=== PATIENT | female | born 1945 | race Caucasian/White ===

== ENCOUNTER 2017-04-14 06:10 | Day surgery (SDC) | payer MEDICARE, BC ==
--- NOTE | 2017-04-11 16:09 | PCM.PREANE ---
Preanesthetic Assessment - Anesthesia/Transfusion/Family Hx Anesthesia History: Prior Anesthesia Without Reaction Type of Anesthesia Reaction: Excessive Nausea/Vomiting Family History of Anesthesia Reaction: No Transfusion History: No Prior Transfusion(s) Intubation History: Unknown - Review of Systems Pulmonary: No Symptoms (quit smoking 1971), Cough Cardiovascular: No Symptoms Gastrointestinal: No Symptoms, Constipation Neurological: No Symptoms (History of lower back pain /history of vertigo in the past.) Other: Reports: Sinus Problem - Physical Assessment NPO Status Date: 04/13/17 NPO Status Time: 18:00 Pulse: 72 O2 Sat by Pulse Oximetry: 96 Respiratory Rate: 16 Blood Pressure: 119/75 Temperature: 36.1 C Height: 1.57 m Weight: 64.864 kg ASA Class: 2 Mental Status: Alert & Oriented x3 Airway Class: Mallampati = 2 Dentition: Reports: Normal Dentition, Partial, Caries Thyro-Mental Finger Breadths: 3 Mouth Opening Finger Breadths: 3 ROM/Head Extension: Full Lungs: Clear to Auscultation, Normal Respiratory Effort Cardiovascular: Regular Rate, Regular Rhythm, No Murmurs - Lab Values: Laboratory Last Values MRSA (PCR) Negative 03/28/17 10:10 All lab values reviewed and noted and within acceptable ranges to proceed with scheduled procedure. HGB=13.6 HCT=41.8 Pfgdgpgeb=284,000 - Imaging/EKG Impressions: CXR: unremarkable/negative EKG: SR rte 74, low voltage, precordial leads - Allergies Allergies/Adverse Reactions: Allergies Allergy/AdvReac Type Severity Reaction Status Date / Time acetaminophen [From Vicodin] AdvReac Nausea and Verified 04/11/17 10:25 Vomiting celecoxib [From Celebrex] AdvReac Chest Pain Verified 04/11/17 10:25 hydrocodone bitartrate AdvReac Nausea and Verified 04/11/17 10:25 [From Vicodin] Vomiting ibandronate sodium AdvReac Chest Pain Verified 04/11/17 10:25 [From Boniva] - Anesthesia Plan Pre-Op Medication Ordered: None - Acknowledgements Anesthesia Type Planned: Spinal (And right femoral nerve block within the adductor canal for post operative pain control requested by Dr. Malloy.) Pt an Appropriate Candidate for the Planned Anesthesia: Yes Alternatives and Risks of Anesthesia Discussed w Pt/Guardian: Yes Pt/Guardian Understands and Agrees with Anesthesia Plan: Yes PreAnesthesia Questionnaire HEENT History: Reports: Impaired Vision, Sinusitis, Other (See Below) Other HEENT History: dysphagia, wears glasses Cardiovascular History: Reports: High Cholesterol, Other (See Below) Other Cardiovascular History: varicose veins Respiratory History: Reports: Other (See Below) Other Respiratory History: cough Gastrointestinal History: Reports: Hemorrhoids, Hiatal Hernia, Other (See Below) Other Gastrointestinal History: achalasia, ulcer, esophageal manometry Genitourinary History: Reports: None, UTI, Recurrent SKI BASE TRIMMER History: Reports: None Musculoskeletal History: Reports: Back Pain, Chronic, Osteoarthritis, Osteoporosis, Other (See Below) Other Musculoskeletal History: left ankle fracture, left hip pain Neurological History: Reports: Vertigo Psychiatric History: Reports: None Endocrine/Metabolic History: Reports: None Hematologic History: Reports: None Immunologic History: Reports: None Oncologic (Cancer) History: Reports: None Dermatologic History: Reports: None - Past Surgical History Head Surgeries/Procedures: Reports: None HEENT Surgical History: Reports: Tonsillectomy Cardiovascular Surgical History: Reports: None Respiratory Surgical History: Reports: None GI Surgical History: Reports: Appendectomy, Colonoscopy, EGD, Beau Fundoplication Female Surgical History: Reports: Tubal Ligation Male Surgical History: Reports: None Endocrine Surgical History: Reports: None Neurological Surgical History: Reports: None Musculoskeletal Surgical History: Reports: Carpal Tunnel, Hip Replacement Other Musculoskeletal Surgeries/Procedures:: Left Total hip replacement, thumb surgery, toe surgery Oncologic Surgical History: Reports: None Dermatological Surgical History: Reports: None - SUBSTANCE USE Smoking Status *Q: Former Smoker Recreational Drug Use History: No - HOME MEDS Home Medications: Home Meds Ca Carbonate/Vitamin D3/Vit K [Calcium + D Soft Chewable Tab] 1 tab PO DAILY [History] Om3-DHA/Epa/D3/Lutein/Zeazanth [Eye [employer] Advantage Softgel] 1 cap PO DAILY [History] [employer]-3/DHA/Epa/Fish Oil [Fish Oil 1,000 mg Softgel] 1 cap PO DAILY 04/30/16 [ History] Biotin 5 mg PO DAILY 04/11/17 [History] D-Methorphan/Acetamin/Doxylamn [Night Time Cold-Flu Softgel] 1 cap PO Q4H PRN [History] - CURRENT (IN HOUSE) MEDS Current Meds: Current Medications Lactated Ringer's (Ringers, Lactated) 1,000 mls @ 125 mls/hr IV ASDIRECTED BAILEY Stop: 04/14/17 23:00 Lidocaine/Sodium Bicarbonate (Buffered Lidocaine 1% In Ns 8.4%) 0.25 ml IDERM ONETIME PRN PRN Reason: Prior to IV Start Stop: 04/14/17 18:00 Sodium Chloride (Saline Flush) 10 ml FLUSH ASDIRECTED PRN PRN Reason: Keep Vein Open Stop: 04/14/17 18:00
[~2017-04-14 06:10] MED LIST: EPINEPHrine 1 MG/ML SDV ONE; Lactated Ringers 1,000 ML IV SCH; Lidocaine 1%/Sod Bicarbonate in NS 8.4% 1 ML Syringe IDERM PRN; Morphine PF 1 MG/ML Amp ONE; Ropivacaine 0.5% 5 MG/ML 30 ML SDV ONE; Sodium Chloride 0.9% 10 ML Syringe FLUSH PRN
[2017-04-14] MEDS ORDERED: Vancomycin 1 GM SDV ONE (06:18)
[2017-04-14] MEDS ORDERED: ceFAZolin 1 GM Vial ONE (06:19)
[2017-04-14] MEDS ORDERED: Phenylephrine/Normal Saline 100 MCG/ML 10 ML Syringe ONE (06:20)
[2017-04-14] MEDS ORDERED: fentaNYL 100 MCG/2 ML SDV ONE (06:20)
[2017-04-14] MEDS ORDERED: Propofol 200 MG/20 ML SDV ONE (06:20)
[2017-04-14] MEDS ORDERED: Ondansetron 4 MG/2 ML SDV ONE (06:20)
[2017-04-14] MEDS ORDERED: Lactated Ringers 1,000 ML ONE (06:20)
[2017-04-14] MEDS ORDERED: Midazolam 1 MG/ML 2 ML SDV ONE (06:20)
[2017-04-14] MEDS ORDERED: Scopolamine 1 MG Transdermal Patch TRDERM ONE (06:37)
[2017-04-14] MEDS ORDERED: Ketorolac 15 MG/ML SDV IVPUSH PRN (06:45)
[2017-04-14] MEDS ORDERED: Bisacodyl 5 MG Tab PO PRN (06:46)
[2017-04-14] MEDS ORDERED: Morphine 2 MG/ML Syringe IVPUSH PRN (06:46)
[2017-04-14] MEDS ORDERED: Sennosides 8.6 MG Tab PO PRN (06:46)
[2017-04-14] MEDS ORDERED: Cyclobenzaprine 10 MG Tab PO PRN ×2 (06:46→10:42)
[2017-04-14] MEDS ORDERED: Magnesium Hydroxide 400 MG/5 ML Susp 30 ML Cup PO PRN (06:46)
[2017-04-14] MEDS ORDERED: Naloxone 0.4 MG/ML SDV IVPUSH PRN (06:46)
[2017-04-14] MEDS ORDERED: diphenhydrAMINE 50 MG/ML SDV IVPUSH PRN (07:30)
[2017-04-14] MEDS ORDERED: HYDROmorphone 0.5 MG/0.5 ML Syringe IVPUSH PRN (07:30)
[2017-04-14] MEDS ORDERED: Ondansetron 4 MG/2 ML SDV IVPUSH PRN (07:30)
[2017-04-14] MEDS ORDERED: fentaNYL 100 MCG/2 ML SDV IVPUSH PRN (07:30)
[2017-04-14] MEDS ORDERED: Phenylephrine 1 MG in Sodium Chloride 0.9% 10 ML IV SCH (07:30)
[2017-04-14] MEDS ORDERED: ePHEDrine 50 MG/ML SDV IVPUSH PRN (07:30)
[2017-04-14] MEDS: Iodine/Sodium Iodide 2% Tincture 30 ML Bottle ONE ×2 (08:06→08:16)
[2017-04-14] MEDS: Bupivacaine 0.25% 30 ML SDV ONE ×2 (08:07→08:19)
[2017-04-14] MEDS: ceFAZolin 1 GM Vial ONE ×2 (08:07→08:18)
[2017-04-14] MEDS: Vancomycin 1 GM SDV ONE ×2 (08:08→08:21)
[2017-04-14] MEDS: Morphine 8 MG, EPINEPHrine 0.3 MG, Cefuroxime 750 MG, Ketorolac 30 MG, Sodium Chloride ... ONE ×10 (08:08→08:20)
--- NOTE | 2017-04-14 09:07 | PCM.POSTAN ---
POST ANESTHESIA ASSESSMENT - MENTAL STATUS Mental Status: Alert - VITAL SIGNS Pulse Rate: 74 SaO2: 97 Resp Rate: 19 Blood Pressure: 91/53 Temperature: 36.7 C - RESPIRATORY Respiratory Status: Respiratory Rate WNL, Airway Patent, O2 Saturation Stable, Supplemental Oxygen - CARDIOVASCULAR CV Status: Pulse Rate WNL, Blood Pressure Stable - GASTROINTESTINAL GI Status: No Symptoms - POST OP HYDRATION Hydration Status: Adequate & Stable
--- NOTE | 2017-04-14 09:53 | PCM.SN ---
- Free Text/Narrative Note: Right selective femoral nerve block at the adductor canal for post-procedure pain control under US guidance requested by Dr. Malloy. Time Out: 921 Start: 922 End: 933 Chart reviewed. Consent signed. Questions answered. Appropriate monitors applied. Time out performed. Right mid-shaft femur identified with ultrasound, scanning medially of femur, the femoral artery in the adductor canal visualized , and the femoral nerve located laterally to the artery. The skin was prepped lateral to the ultrasound probe with chlorahexadine. The 21ga 4 insulated block needle was inserted under direct ultrasound guidance into the adductor canal. 25mL of 0.5% ropivacaine with 1:200,000 epinephrine was injected cirmcumferentially around the nerve with intermittent negative aspiration noted. Patient tolerated the procedure well. See pictures on progress note and vital signs on nurses notes. Block completed in PACU. Kaley Guzman CRNA
[2017-04-14] MEDS: Ondansetron 4 MG/2 ML SDV IVPUSH PRN (10:58)
--- NOTE | 2017-04-14 11:41 | CR ---
Right knee: AP and lateral views of the right knee were obtained. Comparison: No prior knee exam. Knee prosthesis is seen. Components are aligned. Underlying bony structures are intact. Soft tissue air is noted from the surgical procedure. Impression: 1. Satisfactory postoperative radiographic appearance of recently placed right knee prosthesis. Diagnostic code #2
--- NOTE | 2017-04-14 12:45 | PCM.OPNOTE ---
- General Post-Op/Procedure Note Date of Surgery/Procedure: 04/14/17 Operative Procedure(s): right total knee arthroplasty Pre Op Diagnosis: right knee osteoarthrosis Post-Op Diagnosis: Same Anesthesia Technique: Local, MAC, Spinal Primary Surgeon: Jayy Malloy Anesthesia Provider: Kaley Guzman Conduit Installer: Fide Coffey Conduit Installer: Radha Cedillo EBL in mLs: 15 Complications: None Condition: Good Free Text/Narrative:: Intake & Output 04/13/17 04/14/17 04/14/17 22:59 06:59 14:59 Intake Total 100 Output Total 125 Balance -25
--- NOTE | 2017-04-14 15:08 | PCM.CONS ---
H&P History of Present Illness - General Date of Service: 04/14/17 Admit Problem/Dx: Admission Diagnosis/Problem Admission Diagnosis/Problem Osteoarthritis of knee Source of Information: Patient, Old Records, Provider, RN, Other (Surgical notes ) History Limitations: Reports: No Limitations - History of Present Illness Initial Comments - Free Text/Narative: Shereen Taylor is a 72 yo female patient of Dr. Malloy who is post-operative day 0 of right total knee arthroplasty. Hospital medicine was consulted for post- operative medical care. At this time she is resting comfortably in bed. Pain is controlled. She denies any chest pain, shortness of breath, palpitations, nausea, or vomiting. She carries a history of: Osteoporosis, dysphagia, achalasia, hx/o Beau fundoplication, HLD, recurrent UTI, chronic back pain, osteoarthritis. She is a former smoker. She is a full code. Her primary care provider is Dr. Perla at [facility] in [place]. Right Knee Pain Score (Numeric/FACES): 2 - Related Data Allergies/Adverse Reactions: Allergies Allergy/AdvReac Type Severity Reaction Status Date / Time acetaminophen [From Vicodin] AdvReac Nausea and Verified 04/14/17 07:13 Vomiting celecoxib [From Celebrex] AdvReac Chest Pain Verified 04/14/17 07:13 hydrocodone bitartrate AdvReac Nausea and Verified 04/14/17 07:13 [From Vicodin] Vomiting ibandronate sodium AdvReac Chest Pain Verified 04/14/17 07:13 [From Boniva] Home Medications: Home Meds Ca Carbonate/Vitamin D3/Vit K [Calcium + D Soft Chewable Tab] 1 tab PO DAILY [History] Om3-DHA/Epa/D3/Lutein/Zeazanth [Eye [place] Advantage Softgel] 1 cap PO DAILY [History] [place]-3/DHA/Epa/Fish Oil [Fish Oil 1,000 mg Softgel] 1 cap PO DAILY 04/30/16 [ History] Biotin 5 mg PO DAILY 04/11/17 [History] D-Methorphan/Acetamin/Doxylamn [Night Time Cold-Flu Softgel] 1 cap PO Q4H PRN [History] Past Medical History HEENT History: Reports: Impaired Vision, Sinusitis, Other (See Below) Other HEENT History: dysphagia, wears glasses Cardiovascular History: Reports: High Cholesterol, Other (See Below) Other Cardiovascular History: varicose veins Respiratory History: Reports: Other (See Below) Other Respiratory History: cough Gastrointestinal History: Reports: Hemorrhoids, Hiatal Hernia, Other (See Below) Other Gastrointestinal History: achalasia, ulcer, esophageal manometry Genitourinary History: Reports: None, UTI, Recurrent PERMANENT WAVER History: Reports: None Musculoskeletal History: Reports: Back Pain, Chronic, Osteoarthritis, Osteoporosis, Other (See Below) Other Musculoskeletal History: left ankle fracture, left hip pain Neurological History: Reports: Vertigo Psychiatric History: Reports: None Endocrine/Metabolic History: Reports: None Hematologic History: Reports: None Immunologic History: Reports: None Oncologic (Cancer) History: Reports: None Dermatologic History: Reports: None - Past Surgical History Head Surgeries/Procedures: Reports: None HEENT Surgical History: Reports: Tonsillectomy Cardiovascular Surgical History: Reports: None Respiratory Surgical History: Reports: None GI Surgical History: Reports: Appendectomy, Colonoscopy, EGD, Beau Fundoplication Female Surgical History: Reports: Tubal Ligation Male Surgical History: Reports: None Endocrine Surgical History: Reports: None Neurological Surgical History: Reports: None Musculoskeletal Surgical History: Reports: Carpal Tunnel, Hip Replacement Other Musculoskeletal Surgeries/Procedures:: Left Total hip replacement, thumb surgery, toe surgery Oncologic Surgical History: Reports: None Dermatological Surgical History: Reports: None Social & Family History - Tobacco Use Smoking Status *Q: Former Smoker Month Tobacco Last Used: 1971 - Caffeine Use Caffeine Use: Reports: Coffee - Recreational Drug Use Recreational Drug Use: No H&P Review of Systems - Review of Systems: Review Of Systems: See Below General: Reports: No Symptoms HEENT: Reports: No Symptoms Pulmonary: Reports: No Symptoms Cardiovascular: Reports: No Symptoms Gastrointestinal: Reports: Constipation (chronic ), Nausea, Vomiting. Denies: Abdominal Pain, Diarrhea, Difficulty Swallowing Genitourinary: Reports: No Symptoms Musculoskeletal: Reports: Joint Pain (right knee ) Skin: Reports: No Symptoms Psychiatric: Reports: No Symptoms Neurological: Reports: No Symptoms Hematologic/Lymphatic: Reports: No Symptoms Immunologic: Reports: No Symptoms Exam - Exam Exam: See Below - Vital Signs Vital Signs: Last Vital Signs Temp 97.3 F 04/14/17 09:45 Pulse 70 04/14/17 10:31 Resp 16 04/14/17 10:05 BP 112/57 L 04/14/17 10:31 Pulse Ox 93 L 04/14/17 10:31 Weight: 143 lb - Exam Quality Assessment: Supplemental Oxygen (1L), Urinary Catheter, DVT Prophylaxis General: Alert, Oriented, Cooperative. No: Mild Distress HEENT: PERRLA, Hearing Intact, Mucosa Moist & [place], Nares Patent, Normal Nasal Septum, Posterior Pharynx Clear, Conjunctiva Clear, EOMI, EACs Clear, TMs Clear Neck: Supple, Trachea Midline. No: JVD Lungs: Clear to Auscultation, Normal Respiratory Effort Cardiovascular: Regular Rate, Regular Rhythm GI/Abdominal Exam: Normal Bowel Sounds, Soft, Non-Tender, No Organomegaly, No Distention, No Abnormal Bruit, No Mass, Pelvis Stable (Female) Exam: Deferred Rectal (Female) Exam: Deferred Back Exam: Normal Inspection, Full Range of Motion Extremities: No Pedal Edema, Normal Capillary Refill, Leg Pain (right knee ), Limited Range of Motion, Other (TARA bandage in place on right leg. Bandage is dry and intact. Cooling pack in place. ) Peripheral Pulses: 2+: Radial (L), Radial (R), Posterior Tibial (L), Posterior Tibial (R), Dorsalis Pedis (L), Dorsalis Pedis (R) Skin: Warm, Dry, Intact Neurological: Cranial Nerves Intact (Grossly) Neuro Extensive - Mental Status: Alert, Oriented x3, Normal Mood/Affect, Normal Cognition, Memory Intact Psychiatric: Alert, Normal Affect, Normal Mood Consult PN Assessment/Plan POD#: 0 Procedures: Procedures ASSAY OF TROPONIN QUANT (06/28/15) COLONOSCOPY AND BIOPSY (05/01/16) COMPLETE CBC W/AUTO DIFF WBC (10/23/14) COMPREHEN METABOLIC PANEL (10/23/14) CONTRST X-RAY UPPR GI TRACT (08/13/13) CT HEAD/BRAIN W/O DYE (10/23/14) CT MAXILLOFACIAL W/O DYE (04/24/15) DXA BONE DENSITY AXIAL (03/31/17) ELECTROCARDIOGRAM TRACING (10/23/14) EMERGENCY DEPT VISIT (10/23/14) OFFICE/OUTPATIENT VISIT NEW (04/24/15) PROTHROMBIN TIME (10/23/14) ROUTINE VENIPUNCTURE (10/23/14) THER/PROPH/DIAG INJ IV PUSH (10/23/14) THROMBOPLASTIN TIME PARTIAL (10/23/14) TISSUE EXAM BY PATHOLOGIST (05/01/16) TX/PRO/DX INJ NEW DRUG ADDON (10/23/14) TX/PRO/DX INJ SAME DRUG WIRE SAW OPERATOR (10/23/14) URINE BACTERIA CULTURE (08/04/13) X-RAY EXAM OF ABDOMEN (10/23/14) (1) S/P total knee arthroplasty SNOMED Code(s): 6804059873541, 8828519878947 Code(s): Z96.659 - PRESENCE OF UNSPECIFIED ARTIFICIAL KNEE JOINT Priority: High Current Visit: Yes Qualifiers: Laterality: right Qualified Code(s): Z96.651 - Presence of right artificial knee joint (2) Osteoarthritis SNOMED Code(s): 454336575 Code(s): M19.90 - UNSPECIFIED OSTEOARTHRITIS, UNSPECIFIED SITE Priority: High Current Visit: Yes Qualifiers: Osteoarthritis location: knee Osteoarthritis type: primary Laterality: right Qualified Code(s): M17.11 - Unilateral primary osteoarthritis, right knee (3) Age related osteoporosis SNOMED Code(s): 232570922 Code(s): M81.0 - AGE-RELATED OSTEOPOROSIS W/O CURRENT PATHOLOGICAL FRACTURE Priority: Medium Current Visit: Yes Qualifiers: Presence of current pathological fracture: unspecified Qualified Code(s): M81.0 - Age-related osteoporosis without current pathological fracture (4) HLD (hyperlipidemia) SNOMED Code(s): 09475654 Code(s): E78.5 - HYPERLIPIDEMIA, UNSPECIFIED Current Visit: Yes (5) Achalasia SNOMED Code(s): 34215118 Code(s): K22.0 - ACHALASIA OF CARDIA Priority: Low Current Visit: No (6) Chronic back pain SNOMED Code(s): 346708271 Code(s): M54.9 - DORSALGIA, UNSPECIFIED; G89.29 - OTHER CHRONIC PAIN Priority: Low Current Visit: No Qualifiers: Back pain location: back pain in unspecified location Back pain laterality : unspecified Qualified Code(s): M54.9 - Dorsalgia, unspecified; G89.29 - Other chronic pain; G89.29 - Other chronic pain (7) History of Beau fundoplication SNOMED Code(s): 399704270 Code(s): Z98.890 - OTHER SPECIFIED POSTPROCEDURAL STATES Priority: Low Current Visit: No Problem List Initiated/Reviewed/Updated: Yes Plan: I/P: Acute: S/P right total knee arthroplasty - post-operative day 0 -DVT prophylaxis and pain management per primary care team -PT/OT -IS/RT -Monitor oxygen saturation -Titrate oxygen as needed -Vital signs stable -Monitor labs -Pre-operative Hgb was 13.6 Osteoarthritis of right knee -Pain management per primary care team Post-operative nausea and vomiting -Zofran and scopolamine patch had little effect -Compazine ordered Chronic: Osteoporosis Dysphasia Achalasia Hx/o this on fundoplication HLD Chronic back pain Plan: CM for discharge planning GI prophylaxis Home medications as indicated Other orders as listed above Routine AM labs She is a full code. Her PCP is Dr. Perla at [facility] Thank you for allowing us to participate in the care of this patient!! Total time spent with patient 30 minutes Requesting Provider: Dr. Malloy Date Consult Requested: 04/14/17 Reason for Consult: Post-operative medical management Patient History Reviewed: Yes Admission H&P Reviewed: Yes Time Spent (in minutes): 30
[2017-04-14] MEDS ORDERED: Prochlorperazine 10 MG/2 ML SDV IVPUSH ONE (15:41)
[2017-04-14] MEDS: ceFAZolin 2 GM in Premix Bag 1 BAG IV SCH ×2 (15:54→23:13)
[2017-04-14] MEDS: Famotidine 20 MG Tab PO SCH ×2 (18:15→18:46)
[2017-04-14] MEDS: Acetaminophen/oxyCODONE 325-5 MG Tab PO PRN ×2 (18:46→23:26)
--- NOTE | 2017-04-14 20:26 | OR ---
DATE OF OPERATION: 04/14/2017 SURGEON: Jayy Malloy MD OPERATION PERFORMED: Right total knee arthroplasty. PREOPERATIVE DIAGNOSIS: Right knee osteoarthrosis. POSTOPERATIVE DIAGNOSIS: Right knee osteoarthrosis. ANESTHESIA: Local MAC with spinal. ANESTHESIA PROVIDER: Kaley Guzman CRNA. CUPOLA MELTING SUPERVISOR: Fide Coffey PA-C; and Radha Cedillo LPN. ESTIMATED BLOOD LOSS: 15 mL. COMPLICATIONS: None. CONDITION: Stable. IMPLANTS: 1. Sanjiv size 4 PS femur. 2. Sanjiv size 4 [place] tibial baseplate. 3. [place] size 4, 9 mm PS X3 polyethylene. 4. 29 x 9 mm cemented patella. DESCRIPTION OF PROCEDURE: The patient was identified in the preop holding area. Proper site was marked and identified by the surgeon. The patient was taken back to the operating theater. After adequate anesthesia, the patient's right lower extremity had a nonsterile tourniquet applied and it was then sterilely prepped and draped in the usual sterile fashion. OR timeout was performed. The patient received 2 g IV Ancef. At this time, right lower extremity was exsanguinated. Tourniquet was insufflated to 300 mmHg. Standard medial parapatellar incision was made. Medial parapatellar arthrotomy was created. Deep fibers of the MCL were raised and anterior fat pad was resected. At this time, attention was turned to the patella. Patella measured 22, it was resected to a 13 for a 29 x 9 mm patella. Drill holes were then drilled and found to be in adequate position. The drill was then drilled in the distal femur and the intramedullary distal femoral cutting guide was then placed. 8 mm was resected off the distal femur and was found to be an adequate resection. Sizing guide was placed. It was found to be a size 4 femur that was shown on the implant record at the beginning of this dictation. The drill holes were drilled for the epicondylar axis using [place] line and epicondyles as reference. At this time, the 4-in-1 cutting block was placed. An anterior posterior and anterior and posterior chamfer cuts were then completed. The correct size box cut was then placed and the box cut was completed and found to be an adequate resection. Attention was turned to the tibia. The posterior medial lateral retractors were placed. The extramedullary tibial guide was placed. It was placed in the old footprint of the ACL. It was aligned with the center of the ankle and 0 degrees of slope, 9 mm was then resected off the unaffected lateral side. There was found to be an acceptable reduction. At this time, posterior osteophytes were removed along with medial and lateral meniscus. A trial implant was placed with a correct sized tibia that was mentioned at the beginning of the dictation. A [place] size 4, 9 mm PS X3 polyethylene was then placed. The patient's knee was brought through range of motion. The patella was tracking centrally and was stable to varus and valgus stress. Alignment was found to be roughly at 0 degrees. At this time, cement was mixed on the back table. The tibia was stamped and drilled in proper rotation. All cut surfaces were irrigated with pulse lavage irrigation with Ancef and then completely dried. Once this was completed, then the cement was ready. The universal tibial base plate was cemented in place. Next, the [address] and the [place] size 4, 9 mm PS X3 polyethylene was placed. The patient's knee was brought into full extension. Excess cement was removed. The patella was then cemented in place at this time. Tourniquet was deflated. One liter dilute Betadine solution was irrigated through the knee along with 3 L of pulse lavage irrigation with Ancef. Periarticular injection was then completed. The patient's knee was brought through a range of motion. Once the cement had time to set up and it was found to be stable to varus valgus stress, the patella was tracking centrally with full range of motion. At this time, a #2 barbed suture was used for closure of the medial parapatellar arthrotomy. Topical tranexamic acid was placed. 2-0 Vicryl was used subcutaneously, a running 3-0 Monocryl was used subcuticularly. The patient tolerated the procedure well and was sent to the PACU in stable condition. TRUONG /[id number]
[2017-04-14] MEDS: Docusate Sodium 100 MG Cap PO SCH (20:28)
[2017-04-15] MEDS: Ondansetron 4 MG/2 ML SDV IVPUSH PRN ×2 (05:58→13:32)
[2017-04-15] MEDS: ceFAZolin 2 GM in Premix Bag 1 BAG IV SCH (06:02)
[2017-04-15] MEDS: Famotidine 20 MG Tab PO SCH (06:10)
[2017-04-15] MEDS: Acetaminophen/oxyCODONE 325-5 MG Tab PO PRN ×3 (06:11→13:31)
--- NOTE | 2017-04-15 08:21 | PCM.CONSN ---
- General Info Date of Service: 04/15/17 Admission Dx/Problem (Free Text): Admission Diagnosis/Problem Admission Diagnosis/Problem Osteoarthritis of knee Postop day #1 total knee arthroplasty with Dr. Malloy She is doing well this morning she's been up ambulatory with physical therapy did get dressed. She feels mildly nauseous but is hungry. She is voiding. Functional Status: Reports: Pain Controlled, Tolerating Diet, Ambulating, Urinating, Incentive Spirometry. Denies: New Symptoms - Review of Systems General: Reports: No Symptoms HEENT: Reports: No Symptoms Pulmonary: Reports: No Symptoms Cardiovascular: Reports: No Symptoms Gastrointestinal: Reports: No Symptoms Genitourinary: Reports: No Symptoms Musculoskeletal: Reports: Leg Pain Skin: Reports: No Symptoms Neurological: Reports: No Symptoms Psychiatric: Reports: No Symptoms - Patient Data Vitals - Most Recent: Last Vital Signs Temp 98.4 F 04/15/17 02:41 Pulse 70 04/15/17 02:41 Resp 16 04/15/17 02:41 BP 107/53 L 04/15/17 02:41 Pulse Ox 93 L 04/15/17 02:41 Weight - Most Recent: 143 lb I&O - Last 24 Hours: Intake & Output 04/14/17 04/15/17 04/15/17 22:59 06:59 14:59 Intake Total 420 450 Output Total 700 Balance -280 450 Lab Results Last 24 Hours: Laboratory Results - last 24 hr 04/15/17 04/15/17 Range/Units 06:40 06:40 WBC 6.58 (3.98-10.04) K/mm3 RBC 3.87 L (3.98-5.22) M/mm3 Hgb 11.3 (11.2-15.7) gm/L Hct 35.8 (34.1-44.9) % MCV 92.5 (79.4-94.8) fl MCH 29.2 (25.6-32.2) pg MCHC 31.6 L (32.2-35.5) g/dl RDW Std Deviation 43.8 (36.4-46.3) fL Plt Count 221 (182-369) K/mm3 MPV 9.5 (9.4-12.3) fl Carbon Dioxide 28 (21-32) mEq/L BUN 14 (7-18) mg/dL Creatinine 0.9 (0.55-1.02) mg/dL Est Cr Clr Drug Dosing 44.03 mL/min Estimated GFR (MDRD) > 60 (>60) mL/min BUN/Creatinine Ratio 15.6 (14-18) Glucose 131 H (83-115) mg/dL Calcium 8.8 (8.5-10.1) mg/dL Total Bilirubin 0.5 (0.2-1.0) mg/dL AST 23 (15-37) U/L ALT 21 (14-59) U/L Alkaline Phosphatase 43 L (46-116) U/L Total Protein 6.0 L (6.4-8.2) g/dl Albumin 3.0 L (3.4-5.0) g/dl Globulin 3.0 gm/dL Albumin/Globulin Ratio 1.0 (1-2) Med Orders - Current: Current Medications Bisacodyl (Dulcolax) 5 mg PO DAILY PRN PRN Reason: Constipation Docusate Sodium (Colace) 100 mg PO BID [facility] Last Admin: 04/14/17 20:28 Dose: 100 mg Famotidine (Pepcid) 20 mg PO Q12H [facility] Last Admin: 04/15/17 06:10 Dose: 20 mg Magnesium Hydroxide (Milk Of Magnesia) 30 ml PO BID PRN PRN Reason: Constipation Miscellaneous Information (Remove Patch) 1 ea TRDERM Q72H [facility] Stop: 04/17/17 06:31 Morphine Sulfate (Morphine) 2 mg IVPUSH Q2H PRN PRN Reason: Breakthrough Pain Naloxone HCl (Narcan) 0.1 mg IVPUSH Q5M PRN PRN Reason: Oversedation Ondansetron HCl (Zofran) 4 mg IVPUSH Q6H PRN PRN Reason: Nausea/Vomiting Last Admin: 04/15/17 05:58 Dose: 4 mg Oxycodone/Acetaminophen (Percocet 325-5 Mg) 1 - 2 tab PO Q4H PRN PRN Reason: Pain Last Admin: 04/15/17 06:11 Dose: 2 tab Rivaroxaban (Xarelto) 10 mg PO DAILY [facility] Senna (Senna) 8.6 mg PO BID PRN PRN Reason: Constipation Discontinued Medications Bupivacaine HCl (Marcaine 0.25%) Confirm Administered Dose 30 ml .ROUTE .STK- MED ONE Stop: 04/14/17 06:20 Last Admin: 04/14/17 08:19 Dose: 30 ml Cefazolin Sodium (Ancef) Confirm Administered Dose 2 gm .ROUTE .STK-MED ONE Stop: 04/14/17 06:21 Last Admin: 04/14/17 08:18 Dose: 2 gm Cefazolin Sodium (Ancef) Confirm Administered Dose 2 gm .ROUTE .STK-MED ONE Stop: 04/14/17 06:20 Morphine Sulfate 8 mg/Epinephrine HCl 0.3 mg/Cefuroxime Sodium 750 mg/Ketorolac Tromethamine 30 mg/Sodium Chloride 27.9 ml 0 mg .XX ONETIME ONE Stop: 04/14/17 07:31 Last Admin: 04/14/17 08:20 Dose: 788.3 mg Cyclobenzaprine HCl (Flexeril) 10 mg PO TID PRN PRN Reason: Spasms Cyclobenzaprine HCl (Flexeril) 5 mg PO BID PRN PRN Reason: Spasms Diphenhydramine HCl (Benadryl) 25 mg IVPUSH Q6H PRN PRN Reason: pruritis Stop: 04/14/17 11:00 Ephedrine Sulfate (Ephedrine Sulfate) 5 mg IVPUSH ASDIRECTED PRN PRN Reason: Hypotension Stop: 04/14/17 11:00 Epinephrine HCl (Adrenalin) Confirm Administered Dose 1 mg .ROUTE .STK-MED ONE Stop: 04/14/17 05:48 Fentanyl (Sublimaze) Confirm Administered Dose 100 mcg .ROUTE .STK-MED ONE Stop: 04/14/17 06:21 Fentanyl (Sublimaze) 50 mcg IVPUSH Q5M PRN PRN Reason: Pain Stop: 04/14/17 11:00 Hydromorphone HCl (Dilaudid) 0.5 mg IVPUSH Q15M PRN PRN Reason: severe pain Stop: 04/14/17 11:00 Lactated Ringer's (Ringers, Lactated) 1,000 mls @ 125 mls/hr IV ASDIRECTED [facility] Stop: 04/14/17 23:00 Last Admin: 04/14/17 06:30 Dose: 125 mls/hr Lidocaine HCl (Xylocaine-Mpf 1%) Confirm Administered Dose 10 mls @ as directed .ROUTE .STK-MED ONE Stop: 04/14/17 06:21 Lactated Ringer's (Ringers, Lactated) Confirm Administered Dose 1,000 mls @ as directed .ROUTE .STK-MED ONE Stop: 04/14/17 06:21 Cefazolin Sodium/Dextrose 2 gm (/ Premix) 50 mls @ 100 mls/hr IV Q8H [facility] Stop: 04/15/17 07:29 Last Admin: 04/15/17 06:02 Dose: 100 mls/hr Phenylephrine HCl 1 mg/ Sodium (Chloride) 10.1 mls @ 1 mls/sec IV TITRATE [facility] PRN Reason: Protocol Stop: 04/14/17 11:00 Iodine (Iodine 2% Mild Tincture) Confirm Administered Dose 30 ml .ROUTE .STK- MED ONE Stop: 04/14/17 06:20 Last Admin: 04/14/17 08:16 Dose: 18 ml Ketorolac Tromethamine (Toradol) 15 mg IVPUSH Q6H PRN PRN Reason: Pain Lidocaine/Sodium Bicarbonate (Buffered Lidocaine 1% In Ns 8.4%) 0.25 ml IDERM ONETIME PRN PRN Reason: Prior to IV Start Stop: 04/14/17 18:00 Last Admin: 04/14/17 06:29 Dose: 0.25 ml Midazolam HCl (Versed 1 Mg/Ml) Confirm Administered Dose 2 mg .ROUTE .STK-MED ONE Stop: 04/14/17 06:21 Morphine Sulfate (Duramorph Pf) Confirm Administered Dose 1 mg .ROUTE .STK-MED ONE Stop: 04/14/17 05:48 Ondansetron HCl (Zofran) Confirm Administered Dose 4 mg .ROUTE .STK-MED ONE Stop: 04/14/17 06:21 Ondansetron HCl (Zofran) 4 mg IVPUSH ONETIME PRN PRN Reason: Nausea/Vomiting Stop: 04/14/17 11:00 Phenylephrine HCl (Phenylephrine In Ns 100 Mcg/Ml) Confirm Administered Dose 1 mg .ROUTE .STK-MED ONE Stop: 04/14/17 06:21 Prochlorperazine Edisylate (Compazine) 5 mg IVPUSH ONETIME ONE Stop: 04/14/17 15:42 Last Admin: 04/14/17 16:16 Dose: 5 mg Propofol (Diprivan 20 Ml) Confirm Administered Dose 400 mg .ROUTE .STK-MED ONE Stop: 04/14/17 06:21 Ropivacaine (Naropin 0.5%) Confirm Administered Dose 30 ml .ROUTE .STK-MED ONE Stop: 04/14/17 05:48 Scopolamine (Scopolamine) 1 each TRDERM Q72H ONE Stop: 04/14/17 06:38 Last Admin: 04/14/17 06:55 Dose: 1 each Sodium Chloride (Saline Flush) 10 ml FLUSH ASDIRECTED PRN PRN Reason: Keep Vein Open Stop: 04/14/17 18:00 Tranexamic Acid (Cyklokapron) Confirm Administered Dose 1,000 mg .ROUTE .STK- MED ONE Stop: 04/14/17 06:19 Last Admin: 04/14/17 08:25 Dose: 1,000 mg Vancomycin HCl (Vancomycin) Confirm Administered Dose 1 gm .ROUTE .STK-MED ONE Stop: 04/14/17 06:19 Vancomycin HCl (Vancomycin) Confirm Administered Dose 1 gm .ROUTE .STK-MED ONE Stop: 04/14/17 06:58 Last Admin: 04/14/17 08:21 Dose: 1 gm - Exam Quality Assessment: DVT Prophylaxis General: Alert, Oriented, Cooperative, No Acute Distress HEENT: Pupils Equal, EOMI, Mucous Membr. Moist/[place] Neck: Supple Lungs: Clear to Auscultation, Normal Respiratory Effort Cardiovascular: Regular Rate, Regular Rhythm GI/Abdominal Exam: Normal Bowel Sounds, Soft, Non-Tender (Female) Exam: Deferred Extremities: Normal Inspection, Other (Teds, SCD's bilat, CMS + and = bilat to LE) Peripheral Pulses: 2+: Dorsalis Pedis (L), Dorsalis Pedis (R) Neurological: No New Focal Deficit Psy/Mental Status: Alert, Normal Affect, Normal Mood Consult PN Assessment/Plan POD#: 1 Procedures: Procedures ASSAY OF TROPONIN QUANT (06/28/15) COLONOSCOPY AND BIOPSY (05/01/16) COMPLETE CBC W/AUTO DIFF WBC (10/23/14) COMPREHEN METABOLIC PANEL (10/23/14) CONTRST X-RAY UPPR GI TRACT (08/13/13) CT HEAD/BRAIN W/O DYE (10/23/14) CT MAXILLOFACIAL W/O DYE (04/24/15) DXA BONE DENSITY AXIAL (03/31/17) ELECTROCARDIOGRAM TRACING (10/23/14) EMERGENCY DEPT VISIT (10/23/14) OFFICE/OUTPATIENT VISIT NEW (04/24/15) PROTHROMBIN TIME (10/23/14) ROUTINE VENIPUNCTURE (10/23/14) THER/PROPH/DIAG INJ IV PUSH (10/23/14) THROMBOPLASTIN TIME PARTIAL (10/23/14) TISSUE EXAM BY PATHOLOGIST (05/01/16) TX/PRO/DX INJ NEW DRUG ADDON (10/23/14) TX/PRO/DX INJ SAME DRUG CERTIFIED MEDICAL AIDE (10/23/14) URINE BACTERIA CULTURE (08/04/13) X-RAY EXAM OF ABDOMEN (10/23/14) (1) Osteoarthritis SNOMED Code(s): 210675125 Code(s): M19.90 - UNSPECIFIED OSTEOARTHRITIS, UNSPECIFIED SITE Priority: High Current Visit: Yes Qualifiers: Osteoarthritis location: knee Osteoarthritis type: primary Laterality: right Qualified Code(s): M17.11 - Unilateral primary osteoarthritis, right knee (2) S/P total knee arthroplasty SNOMED Code(s): 6816193222573, 3422289329317 Code(s): Z96.659 - PRESENCE OF UNSPECIFIED ARTIFICIAL KNEE JOINT Priority: High Current Visit: Yes Qualifiers: Laterality: right Qualified Code(s): Z96.651 - Presence of right artificial knee joint Problem List Initiated/Reviewed/Updated: Yes Plan: I/P: S/P total knee arthroplasty, POD # 1, Dr. Malloy - Pain management and DVT prophylax- patient will be discharged on Xarelto per orthopedics due to history of GI problems as noted below - PT/OT - RT/IS- patient continues on supplemental oxygen at 1 L via nasal cannula, will attempt to wean. - Hgb 11.3, preoperative hemoglobin was 13.6 Chronic conditions: Osteoporosis dysphagia Achalasia history of Beau fundoplication Other: GI Prophylax CM/SW for DC planning Patient is doing well, plan to wean from supplemental oxygen this morning. Patient okay for discharge home with today if able to wean from oxygen. We'll relay recommendations to orthopedic team. Patient is full Code status.
--- NOTE | 2017-04-15 08:57 | PCM48HPAN ---
Post Anesthesia Note - EVALUATION WITHIN 48HRS OF ANESTHETIC Vital Signs in Normal Range: Yes Patient Participated in Evaluation: Yes Respiratory Function Stable: Yes Airway Patent: Yes Cardiovascular Function Stable: Yes Hydration Status Stable: Yes Pain Control Satisfactory: Yes Nausea and Vomiting Control Satisfactory: Yes Mental Status Recovered: Yes
[2017-04-15] MEDS ORDERED: Rivaroxaban 10 MG Tab PO SCH (09:00)
[2017-04-15] MEDS: Docusate Sodium 100 MG Cap PO SCH (09:43)
[2017-04-15 13:35] VITALS: BP 117/54
--- NOTE | 2017-04-15 16:21 | PCM.SURGPN ---
- General Info Date of Service: 04/15/17 POD#: 1 Functional Status: Reports: Pain Controlled, Tolerating Diet, Ambulating, Urinating, Incentive Spirometry - Review of Systems Musculoskeletal: Reports: Other (The pt has met inpatient therapy goals.) - Patient Data Vitals - Most Recent: Last Vital Signs Temp 98.4 F 04/15/17 09:40 Pulse 74 04/15/17 13:31 Resp 20 04/15/17 13:31 BP 117/54 L 04/15/17 13:31 Pulse Ox 93 L 04/15/17 13:31 Weight - Most Recent: 143 lb I&O - Last 24 Hours: Intake & Output 04/15/17 04/15/17 04/15/17 06:59 14:59 22:59 Intake Total 450 0 Balance 450 0 Lab Results Last 24 Hrs: Laboratory Results - last 24 hr 04/15/17 04/15/17 Range/Units 06:40 06:40 WBC 6.58 (3.98-10.04) K/mm3 RBC 3.87 L (3.98-5.22) M/mm3 Hgb 11.3 (11.2-15.7) gm/L Hct 35.8 (34.1-44.9) % MCV 92.5 (79.4-94.8) fl MCH 29.2 (25.6-32.2) pg MCHC 31.6 L (32.2-35.5) g/dl RDW Std Deviation 43.8 (36.4-46.3) fL Plt Count 221 (182-369) K/mm3 MPV 9.5 (9.4-12.3) fl Sodium 138 (136-145) mEq/L Potassium 4.8 (3.5-5.1) mEq/L Chloride 103 (98-107) mEq/L Carbon Dioxide 28 (21-32) mEq/L Anion Gap 11.8 (5-15) BUN 14 (7-18) mg/dL Creatinine 0.9 (0.55-1.02) mg/dL Est Cr Clr Drug Dosing 44.03 mL/min Estimated GFR (MDRD) > 60 (>60) mL/min BUN/Creatinine Ratio 15.6 (14-18) Glucose 131 H (83-115) mg/dL Calcium 8.8 (8.5-10.1) mg/dL Total Bilirubin 0.5 (0.2-1.0) mg/dL AST 23 (15-37) U/L ALT 21 (14-59) U/L Alkaline Phosphatase 43 L (46-116) U/L Total Protein 6.0 L (6.4-8.2) g/dl Albumin 3.0 L (3.4-5.0) g/dl Globulin 3.0 gm/dL Albumin/Globulin Ratio 1.0 (1-2) Med Orders - Current: Current Medications Bisacodyl (Dulcolax) 5 mg PO DAILY PRN PRN Reason: Constipation Docusate Sodium (Colace) 100 mg PO BID [facility] Last Admin: 04/15/17 09:43 Dose: 100 mg Famotidine (Pepcid) 20 mg PO Q12H [facility] Last Admin: 04/15/17 06:10 Dose: 20 mg Magnesium Hydroxide (Milk Of Magnesia) 30 ml PO BID PRN PRN Reason: Constipation Miscellaneous Information (Remove Patch) 1 ea TRDERM Q72H [facility] Stop: 04/17/17 06:31 Morphine Sulfate (Morphine) 2 mg IVPUSH Q2H PRN PRN Reason: Breakthrough Pain Naloxone HCl (Narcan) 0.1 mg IVPUSH Q5M PRN PRN Reason: Oversedation Ondansetron HCl (Zofran) 4 mg IVPUSH Q6H PRN PRN Reason: Nausea/Vomiting Last Admin: 04/15/17 13:32 Dose: 4 mg Oxycodone/Acetaminophen (Percocet 325-5 Mg) 1 - 2 tab PO Q4H PRN PRN Reason: Pain Last Admin: 04/15/17 13:31 Dose: 2 tab Rivaroxaban (Xarelto) 10 mg PO DAILY [facility] Last Admin: 04/15/17 09:43 Dose: 10 mg Senna (Senna) 8.6 mg PO BID PRN PRN Reason: Constipation Discontinued Medications Bupivacaine HCl (Marcaine 0.25%) Confirm Administered Dose 30 ml .ROUTE .STK- MED ONE Stop: 04/14/17 06:20 Last Admin: 04/14/17 08:19 Dose: 30 ml Cefazolin Sodium (Ancef) Confirm Administered Dose 2 gm .ROUTE .STK-MED ONE Stop: 04/14/17 06:21 Last Admin: 04/14/17 08:18 Dose: 2 gm Cefazolin Sodium (Ancef) Confirm Administered Dose 2 gm .ROUTE .STK-MED ONE Stop: 04/14/17 06:20 Morphine Sulfate 8 mg/Epinephrine HCl 0.3 mg/Cefuroxime Sodium 750 mg/Ketorolac Tromethamine 30 mg/Sodium Chloride 27.9 ml 0 mg .XX ONETIME ONE Stop: 04/14/17 07:31 Last Admin: 04/14/17 08:20 Dose: 788.3 mg Cyclobenzaprine HCl (Flexeril) 10 mg PO TID PRN PRN Reason: Spasms Cyclobenzaprine HCl (Flexeril) 5 mg PO BID PRN PRN Reason: Spasms Diphenhydramine HCl (Benadryl) 25 mg IVPUSH Q6H PRN PRN Reason: pruritis Stop: 04/14/17 11:00 Ephedrine Sulfate (Ephedrine Sulfate) 5 mg IVPUSH ASDIRECTED PRN PRN Reason: Hypotension Stop: 04/14/17 11:00 Epinephrine HCl (Adrenalin) Confirm Administered Dose 1 mg .ROUTE .STK-MED ONE Stop: 04/14/17 05:48 Fentanyl (Sublimaze) Confirm Administered Dose 100 mcg .ROUTE .STK-MED ONE Stop: 04/14/17 06:21 Fentanyl (Sublimaze) 50 mcg IVPUSH Q5M PRN PRN Reason: Pain Stop: 04/14/17 11:00 Hydromorphone HCl (Dilaudid) 0.5 mg IVPUSH Q15M PRN PRN Reason: severe pain Stop: 04/14/17 11:00 Lactated Ringer's (Ringers, Lactated) 1,000 mls @ 125 mls/hr IV ASDIRECTED [facility] Stop: 04/14/17 23:00 Last Admin: 04/14/17 06:30 Dose: 125 mls/hr Lidocaine HCl (Xylocaine-Mpf 1%) Confirm Administered Dose 10 mls @ as directed .ROUTE .STK-MED ONE Stop: 04/14/17 06:21 Lactated Ringer's (Ringers, Lactated) Confirm Administered Dose 1,000 mls @ as directed .ROUTE .STK-MED ONE Stop: 04/14/17 06:21 Cefazolin Sodium/Dextrose 2 gm (/ Premix) 50 mls @ 100 mls/hr IV Q8H [facility] Stop: 04/15/17 07:29 Last Admin: 04/15/17 06:02 Dose: 100 mls/hr Phenylephrine HCl 1 mg/ Sodium (Chloride) 10.1 mls @ 1 mls/sec IV TITRATE [facility] PRN Reason: Protocol Stop: 04/14/17 11:00 Iodine (Iodine 2% Mild Tincture) Confirm Administered Dose 30 ml .ROUTE .STK- MED ONE Stop: 04/14/17 06:20 Last Admin: 04/14/17 08:16 Dose: 18 ml Ketorolac Tromethamine (Toradol) 15 mg IVPUSH Q6H PRN PRN Reason: Pain Lidocaine/Sodium Bicarbonate (Buffered Lidocaine 1% In Ns 8.4%) 0.25 ml IDERM ONETIME PRN PRN Reason: Prior to IV Start Stop: 04/14/17 18:00 Last Admin: 04/14/17 06:29 Dose: 0.25 ml Midazolam HCl (Versed 1 Mg/Ml) Confirm Administered Dose 2 mg .ROUTE .STK-MED ONE Stop: 04/14/17 06:21 Morphine Sulfate (Duramorph Pf) Confirm Administered Dose 1 mg .ROUTE .STK-MED ONE Stop: 04/14/17 05:48 Ondansetron HCl (Zofran) Confirm Administered Dose 4 mg .ROUTE .STK-MED ONE Stop: 04/14/17 06:21 Ondansetron HCl (Zofran) 4 mg IVPUSH ONETIME PRN PRN Reason: Nausea/Vomiting Stop: 04/14/17 11:00 Phenylephrine HCl (Phenylephrine In Ns 100 Mcg/Ml) Confirm Administered Dose 1 mg .ROUTE .STK-MED ONE Stop: 04/14/17 06:21 Prochlorperazine Edisylate (Compazine) 5 mg IVPUSH ONETIME ONE Stop: 04/14/17 15:42 Last Admin: 04/14/17 16:16 Dose: 5 mg Propofol (Diprivan 20 Ml) Confirm Administered Dose 400 mg .ROUTE .STK-MED ONE Stop: 04/14/17 06:21 Ropivacaine (Naropin 0.5%) Confirm Administered Dose 30 ml .ROUTE .STK-MED ONE Stop: 04/14/17 05:48 Scopolamine (Scopolamine) 1 each TRDERM Q72H [facility] Stop: 04/14/17 06:38 Last Admin: 04/14/17 06:55 Dose: 1 each Sodium Chloride (Saline Flush) 10 ml FLUSH ASDIRECTED PRN PRN Reason: Keep Vein Open Stop: 04/14/17 18:00 Tranexamic Acid (Cyklokapron) Confirm Administered Dose 1,000 mg .ROUTE .STK- MED ONE Stop: 04/14/17 06:19 Last Admin: 04/14/17 08:25 Dose: 1,000 mg Vancomycin HCl (Vancomycin) Confirm Administered Dose 1 gm .ROUTE .STK-MED ONE Stop: 04/14/17 06:19 Vancomycin HCl (Vancomycin) Confirm Administered Dose 1 gm .ROUTE .STK-MED ONE Stop: 04/14/17 06:58 Last Admin: 04/14/17 08:21 Dose: 1 gm - Exam Wound/Incisions: Dressing Dry and Intact General: Alert, Cooperative, No Acute Distress Lungs: Normal Respiratory Effort Extremities: Other (NVS intact for BLE. Isadora's negative. ) - Problem List Review Problem List Initiated/Reviewed/Updated: Yes - My Orders Last 24 Hours: Active Orders 24 hr Category Date Time Status Ready for Discharge [RC] PER UNIT ROUTINE Care 04/15/17 14:16 Active Docusate Sodium [Colace] Med 04/14/17 21:00 Active 100 mg PO BID Remove Patch Med 04/17/17 06:30 Active 1 ea TRDERM Q72H Rivaroxaban [Xarelto] Med 04/15/17 09:00 Active 10 mg PO DAILY Medication Orders Bisacodyl (Dulcolax) 5 mg PO DAILY PRN PRN Reason: Constipation Docusate Sodium (Colace) 100 mg PO BID [facility] Last Admin: 04/15/17 09:43 Dose: 100 mg Admin: 04/14/17 20:28 Dose: 100 mg Famotidine (Pepcid) 20 mg PO Q12H [facility] Last Admin: 04/15/17 06:10 Dose: 20 mg Admin: 04/14/17 18:46 Dose: 20 mg Admin: 04/14/17 18:15 Dose: Not Given Magnesium Hydroxide (Milk Of Magnesia) 30 ml PO BID PRN PRN Reason: Constipation Miscellaneous Information (Remove Patch) 1 ea TRDERM Q72H [facility] Stop: 04/17/17 06:31 Morphine Sulfate (Morphine) 2 mg IVPUSH Q2H PRN PRN Reason: Breakthrough Pain Naloxone HCl (Narcan) 0.1 mg IVPUSH Q5M PRN PRN Reason: Oversedation Ondansetron HCl (Zofran) 4 mg IVPUSH Q6H PRN PRN Reason: Nausea/Vomiting Last Admin: 04/15/17 13:32 Dose: 4 mg Admin: 04/15/17 05:58 Dose: 4 mg Admin: 04/14/17 10:58 Dose: 4 mg Oxycodone/Acetaminophen (Percocet 325-5 Mg) 1 - 2 tab PO Q4H PRN PRN Reason: Pain Last Admin: 04/15/17 13:31 Dose: 2 tab Admin: 04/15/17 09:42 Dose: 2 tab Admin: 04/15/17 06:11 Dose: 2 tab Admin: 04/14/17 23:26 Dose: 2 tab Admin: 04/14/17 18:46 Dose: 2 tab Rivaroxaban (Xarelto) 10 mg PO DAILY [facility] Last Admin: 04/15/17 09:43 Dose: 10 mg Senna (Senna) 8.6 mg PO BID PRN PRN Reason: Constipation - Assessment Assessment (Free Text/Narrative):: POD#1 - right TKA - Plan Plan (Free Text/Narrative):: 1. Discharge to home today. 2. Xarelto for VTE prophylaxis. 3. Outpatient P.T. 4. Hgb 11.3. The pt's case was discussed with Dr. Malloy.
[2017-04-17] MEDS ORDERED: Remove TRANSDERM SCOP Patch TRDERM SCH (06:30)
== END 2017-04-15 16:51 | disposition home or self-care (01) ==
LOC: JD.SDS 06:10 → JD.MS 10:44 → JD.SDS 04-15 16:51
PROVIDERS: ATTEND Orthopaedic Surgery
DX: M17.11 Unilateral primary osteoarthritis, right knee (principal); E78.00 Pure hypercholesterolemia, unspecified; R03.0 Elevated blood-pressure reading, without diagnosis of hypertension; M81.0 Age-related osteoporosis without current pathological fracture; K64.8 Other hemorrhoids; Z79.899 Other long term (current) drug therapy; Z88.6 Allergy status to analgesic agent; Z88.5 Allergy status to narcotic agent; Z90.49 Acquired absence of other specified parts of digestive tract; Z96.642 Presence of left artificial hip joint; Z98.51 Tubal ligation status; Z98.890 Other specified postprocedural states; Z87.891 Personal history of nicotine dependence
CPT/HCPCS: 27447; 36415; 73560; 80053; 85027; 87641; 94762; 97110; 97116; 97162; 97165; 97535; A9270; J0171; J0690; J0697; J0780; J1885; J2250; J2270; J2274; J2405; J2795; J3010; J3370; J3490; J7120; C1713; C1776; J2704